=== PATIENT | male | born 1975 | race Caucasian/White ===

== ENCOUNTER → 2025-05-23 10:55 | Outpatient (CLI) | payer OTHER, SELFPAY ==
--- NOTE | 2025-05-23 11:03 | DI.RAD.S_ITS ---
PROCEDURE: XR LUMBAR SPINE 2-3V INDICATIONS: Degenerative disc TECHNIQUE: 3 views of the lumbar spine were acquired. COMPARISON: None. FINDINGS: Bones: 5 [id number] vertebrae are present. Mild levoscoliosis has its apex about the L2-L3 interspace. There is otherwise normal bony alignment. Moderate T12- L1 disc height loss with adjacent endplate sclerosis and anterior osteophytosis. 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 No acute vertebral body compression fractures. No suspicious bony lesions. Soft tissues: Overlying bowel gas pattern is normal. No suspicious soft tissue calcifications. IMPRESSION: Degenerative change without evidence of acute bony abnormality. 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 Dictated by: Mykel Machado M.D. on 05/24/2025 at 3:03 Approved by: Mykel Machado M.D. on 05/24/2025 at 3:09
== END ==
PROVIDERS: Referring Provider Chiropractor; Visit Provider Chiropractor
DX: M51.360 Other intervertebral disc degeneration, lumbar region with discogenic back pain only (principal); M43.8X4 Other specified deforming dorsopathies, thoracic region; M25.78 Osteophyte, vertebrae
CPT/HCPCS: 72100